=== PATIENT | male | born 1995 | race Caucasian/White ===

== ENCOUNTER 2019-03-17 23:32 | Emergency (ER) | payer OTHER ==
[~2019-03-17] VITALS: Ht 170.2 cm; Wt 77.3 kg
[2019-03-17 23:32] VITALS: BP 123/71
== END 2019-03-18 00:25 | disposition home or self-care (01) ==
LOC: M ED 23:32
DX: F39 Unspecified mood [affective] disorder (principal); Z63.79 Other stressful life events affecting family and household

== ENCOUNTER 2020-06-22 20:12 | Emergency (ER) | payer OTHER ==
[2020-08-07 07:49] LABS: BASO % 0.5 % (0.0-1.0); EOS # 0.1 10^3/uL (0.0-0.5); EOS % 0.8 % (0.0-3.0); HEMATOCRIT 39.5 % (42.0-52.0); HEMOGLOBIN 13.3 g/dl (13.5-17.5); LYMPH # 1.9 10^3/uL (1.5-5.0); LYMPH % 22.4 % (24.0-44.0); MEAN CORPUSCULAR HEMOGLOBIN 28.7 pg (27.0-33.0); MEAN CORPUSCULAR HGB CONC 33.7 g/dl (32.0-36.5); MEAN CORPUSCULAR VOLUME 85.3 fl (80.0-96.0); MONO # 0.6 10^3/uL (0.0-0.8); MONO % 7.5 % (0.0-5.0); NEUTROPHILS # 5.9 10^3/uL (1.5-8.5); NEUTROPHILS % 68.2 % (36.0-66.0); PLATELET COUNT, AUTOMATED 229 10^3/uL (150-450); RED BLOOD COUNT 4.63 10^6/uL (4.30-6.10); WHITE BLOOD COUNT 8.6 10^3/uL (4.0-10.0)
[2020-08-07 08:55] LABS: AMORPHOUS SEDIMENT SMALL (NEGATIVE); APPEARANCE, URINE TURBID (CLEAR); BACTERIA, URINE AUTO NEGATIVE (NEGATIVE); BILIRUBIN, URINE AUTO NEGATIVE (NEGATIVE); BLOOD, URINE BLOOD NEGATIVE (NEGATIVE); COLOR, URINE YELLOW (YELLOW); GLUCOSE, URINE (UA) AUTO NEGATIVE (NEGATIVE); KETONE, URINE AUTO NEGATIVE (NEGATIVE); LEUKOCYTE ESTERASE, URINE AUTO NEGATIVE (NEGATIVE); NITRITE, URINE AUTO NEGATIVE (NEGATIVE); PROTEIN, URINE AUTO NEGATIVE (NEGATIVE); RBC, URINE AUTO 3 /HPF (0-3); SPECIFIC GRAVITY URINE AUTO 1.026 (1.002-1.035); SQUAMOUS EPITHELIAL CELL UR AU 0 /HPF (0-6); UROBILINOGEN, URINE AUTO 0.2 mg/dL (0.0-2.0); WBC, URINE AUTO 9 /HPF (0-3)
== END 2020-06-22 22:37 | disposition home or self-care (01) ==
LOC: M ED 20:12
DX: Z11.59 Encounter for screening for other viral diseases (principal); R19.7 Diarrhea, unspecified; R11.0 Nausea; R42 Dizziness and giddiness; R51 Headache; M54.5 Low back pain; Z79.899 Other long term (current) drug therapy

== ENCOUNTER → 2020-09-06 | Outpatient (CLI) | payer OTHER ==
--- NOTE | 2020-09-08 08:34 | SLEEPCENT ---
DATE: 09/06/2020 ORDERED BY: NICOLE Wong Nocturnal polysomnography was performed for evaluation of sleep physiology in this patient with a history of excessive somnolence, snoring and irregular breathing in sleep. Nine hours and 8 minutes of data were reviewed. There were 394 minutes of sleep identified. Sleep latency was quite prolonged at 136 minutes. REM latency was short at 67 minutes. Sleep architecture once established was good. There were 4 REM cycles noted. Overall sleep efficiency was 72.4%. The electrocardiogram showed a sinus rhythm with an average heart rate of 46 beats per minute. Rate ranged 40-80. EEG showed essentially normal waveforms for wake and sleep. No focal events identified. There were 17 obstructive respiratory events identified of 10 seconds in duration or greater for an apnea-hypopnea index within normal limits at 2.6. Snoring was noted over the course of the study and respiratory- related arousals when arousals from snoring were included occurred two times per hour. There were no significant oxygen desaturations seen and few limb movements were identified. IMPRESSION: Normal nocturnal polysomnography with snoring. [facility]
== END ==
LOC: M SLEEP 20:00
PROVIDERS: ATTEND Nurse Practitioner Family
DX: R06.83 Snoring (principal)